=== PATIENT | male | born 1995 | race Hispanic/Latino ===

== ENCOUNTER 2018-11-24 11:13 | Emergency (ER) | payer SELFPAY ==
--- NOTE | 2018-11-24 12:15 | ER ---
Nurse's Notes [facility] Name: Wyatt Jacobo Age: 23 yrs Sex: Male : 1995 Arrival Date: 11/24/2018 Time: 11:19 Bed Waiting Private MD: None, None Diagnosis: ED Course: 11/24 11:19 Patient arrived in ED. sb2 11:20 None, None is Private Physician. sb2 11:50 Patient's name was called from ER lobby. No response. aa5 11:58 Patient's name was called from ER lobby. No response. aa5 12:13 Patient's name was called from ER lobby. No response. aa5 12:14 Sridhar Peña MD is Attending Physician. aa5 Administered Medications: No medications were administered Outcome: 12:14 Patient left the ED. aa5 Signatures: Tara Atwood RN RN aa5 Nanci Barrow sb2
== END 2018-11-24 12:14 | disposition left against medical advice (07) ==
LOC: ER 11:13
DX: Z53.21 Procedure and treatment not carried out due to patient leaving prior to being seen by health care provider (principal)